=== PATIENT | male | born 1980 ===

== ENCOUNTER 2021-01-02 11:04 | Emergency (ER) | payer OTHER ==
[~2021-01-02] VITALS: Ht 167.6 cm; Wt 104.3 kg
[~2021-01-02 11:04] MED LIST: KETO10TA2 PO; TUSSIONEX PENNKI5 ML PO; [UNRECOGNIZED DRUG - OTHER]
== END 2021-01-02 15:45 | disposition home or self-care (01) ==
LOC: ER 11:04
DX: B34.9 Viral infection, unspecified (principal); Z03.818 Encounter for observation for suspected exposure to other biological agents ruled out